=== PATIENT | male | born 1965 | race Caucasian/White ===

== ENCOUNTER 2016-02-15 20:56 | Emergency (ER) | payer BC ==
--- NOTE | 2016-02-15 21:16 | ER Document Report ---
ED Medical Screen (RME) - General Stated Complaint: FLU SYMPTOMS Time seen by provider: 21:16 Mode of Arrival: Ambulatory Information source: Patient Notes: 50 yo male with headache for 1 week, (like in a vice), nausea, dizziness ( vertigo) pneumonia 1 month ago. Vomiting this afternoon, no diarrhea. TRAVEL OUTSIDE OF THE [place] IN LAST 30 DAYS: No
--- NOTE | 2016-02-15 21:59 | ER Document Report ---
ED General - General Chief Complaint: Other Stated Complaint: FLU SYMPTOMS Mode of Arrival: Ambulatory Notes: Patient presents to the emergency department with complaints of headache nausea and dizziness. He reports he's had a headache for approximately one week feels like his head is in a vice. He reports nausea and dizziness today. He also reports he feels hot and cold for the past week. Gives history of pneumonia approximately one month ago. He also reports that he was evaluated at his primary care provider and then [facility]. He reports at the beginning of February he was treated with amoxicillin for UTI for 3 days. He returned because he has some chest congestion and was treated for a cold with amoxicillin for 7 days. He just now finished taking antibiotics. Patient has history of diabetes and kidney stones. Denies chest pain shortness of breath. Denies fever vomiting and diarrhea. No c/o pain with void. TRAVEL OUTSIDE OF THE [place] IN LAST 30 DAYS: No - HPI Onset: Last week Onset/Duration: Persistent Quality of pain: Pressure - in a vice feeling Severity: Moderate Pain Level: 3 Associated symptoms: Nausea Exacerbated by: Denies Relieved by: Denies Similar symptoms previously: No Recently seen / treated by doctor: Yes - Related Data Allergies/Adverse Reactions: butalbital Allergy (Verified 02/15/16 21:18) hydrocodone Allergy (Verified 02/15/16 21:18) hydroxyzine [From Vistaril] Allergy (Verified 02/15/16 21:18) Past Medical History - General Information source: Patient - Social History Smoking Status: Unknown if Ever Smoked Cigarette use (# per day): No Frequency of alcohol use: None Drug Abuse: None 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 Lives with: Family Family History: Reviewed & Not Pertinent Patient has suicidal ideation: No Patient has homicidal ideation: No - Past Medical History Cardiac Medical History: Reports: Hx Hypercholesterolemia Endocrine Medical History: Reports: Hx Diabetes Mellitus Type 2 Renal/ Medical History: Reports: Hx Kidney Stones Past Surgical History: Reports: Hx Kidney (Renal Surgery) Review of Systems - Review of Systems Notes: Review HPI for review of systems., All other systems negative Physical Exam - Vital signs Vitals: Temp Pulse Resp BP Pulse Ox 98.1 F 91 16 124/77 95 02/15/16 21:18 02/15/16 21:18 02/15/16 21:18 02/15/16 21:18 02/15/16 21:18 - Notes Notes: PHYSICAL EXAMINATION: GENERAL: Well-appearing and in no acute distress HEAD: Atraumatic, normocephalic. EYES: Pupils equal round and reactive to light, extraocular movements intact, sclera anicteric, conjunctiva are normal. ENT: TM normal, nares patent, oropharynx clear without exudates. Moist mucous membranes. NECK: Normal range of motion, supple without lymphadenopathy LUNGS: CTAB and equal. No wheezes rales or rhonchi. HEART: Regular rate and rhythm without murmurs ABDOMEN: Soft, no tenderness. No guarding, no rebound BACK: No c/o pain EXTREMITIES: Normal range of motion, no pitting edema. No cyanosis. NEUROLOGICAL: Cranial nerves grossly intact. Normal sensory/motor exams. PSYCH: Normal mood, normal affect. SKIN: Warm, Dry, normal turgor, no rashes or lesions noted, purple discoloration to left flank area that patient reports has been there since he had kidney stone surgery, years ago. Course - Re-evaluation Re-evalutation: 02/15/16 22:08 Patient and instructed on plan of care. They verbalized understanding. 02/15/16 23:25 Patient reports headache has eased off. Still waiting for EKG. 02/16/16 00:53 Patient. Patient was instructed to follow up with his primary care provider within the next few days for a complete recheck. Reports he feels much better. He reports headache is gone. He reports still having pressure. No vomiting noted - Vital Signs Vital signs: Temp Pulse Resp BP Pulse Ox 98.1 F 91 16 124/77 95 02/15/16 21:18 02/15/16 21:18 02/15/16 21:18 02/15/16 21:18 02/15/16 21:18 - Laboratory Result Diagrams: 02/15/16 22:45 02/15/16 22:45 Laboratory results interpreted by me: 02/15/16 02/15/16 02/15/16 22:45 22:45 22:45 RDW 14.1 H Glucose 144 H Calcium 10.4 H Total Bilirubin 1.5 H Ur Leukocyte Esterase TRACE H - EKG Interpretation by Pa EKG shows normal: Sinus rhythm [place]/QRS: RBBB Discharge - Discharge Clinical Impression: Nausea, Dizziness Headache Qualifiers: Headache type: unspecified Headache chronicity pattern: acute headache Intractability: not intractable Qualified Code(s): R51 - Headache Condition: Stable Disposition: HOME, SELF-CARE Instructions: Headache ([facility]), Dizziness ([facility]), Meclizine ([facility]), Nausea or Vomiting, Nonspecific ([facility]), Antinausea Medication ([facility]) Additional Instructions: *You have been evaluated for headache,nausea, dizziness *Take medication as prescribed *Ensure adequate fluid intake *Follow up with a primary care provider within 3 days for recheck *Return to ED for worsening condition, changes, needs Prescriptions: Meclizine HCl [Dramamine Less Drowsy] 25 mg PO DAILY #12 tablet Forms: Elevated Blood Pressure
[2016-02-15] MEDS ORDERED: DIPHENHYDRAMINE HCL 25 MG CAPSULE PO ONE (22:04)
[2016-02-15] MEDS ORDERED: KETOROLAC TROMETHAMINE 60 MG/2 ML SDV IM ONE (22:04)
[2016-02-15] MEDS ORDERED: ONDANSETRON 4 MG TAB.RAPDIS PO ONE (22:04)
[2016-02-15 23:03] LABS: ABSOLUTE EOSINOPHILS # (AUTO) 0.2 10^3/uL (0.0-0.6); ABSOLUTE LYMPHOCYTES (AUTO) 2.3 10^3/uL (0.5-4.7); ABSOLUTE MONOCYTES (AUTO) 0.5 10^3/uL (0.1-1.4); ABSOLUTE NEUT (AUTO) 4.6 10^3/uL (1.7-8.2); BASOPHILS % (AUTO) 0.5 % (0-2); EOSINOPHILS % (AUTO) 2.8 % (0-6); HEMATOCRIT 42.8 % (37.9-51.0); HEMOGLOBIN 14.3 g/dL (13.5-17.0); HGB HCT DIFFERENCE 0.1; LYMPHOCYTES % (AUTO) 30.1 % (13-45); MEAN CORPUSCULAR HEMOGLOBIN 27.1 pg (27.0-33.4); MEAN CORPUSCULAR HGB CONC 33.3 g/dL (32.0-36.0); MEAN CORPUSCULAR VOLUME 81 fl (80-97); MONOCYTES % (AUTO) 7.1 % (3-13); RED BLOOD COUNT 5.26 10^6/uL (4.35-5.55); RED CELL DISTRIBUTION WIDTH 14.1 % (11.5-14.0); SEGMENTED NEUTROPHILS % (AUTO) 59.5 % (42-78); WHITE BLOOD COUNT 7.7 10^3/uL (4.0-10.5)
[2016-02-15 23:18] LABS: APPEARANCE,URINE CLEAR; BILIRUBIN,URINE NEGATIVE (NEGATIVE); GLUCOSE, URINE NEGATIVE (NEGATIVE); KETONES,URINE NEGATIVE (NEGATIVE); LEUKOCYTE ESTERASE,URINE TRACE (NEGATIVE); NITRITE,URINE NEGATIVE (NEGATIVE); PROTEIN,URINE NEGATIVE (NEGATIVE); URINE SPECIFIC GRAVITY 1.023; UROBILINOGEN,URINE NEGATIVE mg/dL (<2.0)
[2016-02-15 23:25] LABS: ALANINE AMINOTRANSFERASE 68 U/L (21-72); ALBUMIN 4.5 g/dL (3.5-5.0); ALKALINE PHOSPHATASE 69 U/L (38-126); ANION GAP 15 (5-19); ASPARTATE AMINO TRANSFERASE 38 U/L (17-59); BILIRUBIN,TOTAL 1.5 mg/dL (0.2-1.3); BLOOD UREA NITROGEN 13 mg/dL (7-20); CALCIUM 10.4 mg/dL (8.4-10.2); CARBON DIOXIDE 28 mmol/L (22-30); CHLORIDE 101 mmol/L (98-107); CREATININE RESULT 0.75 mg/dL (0.52-1.25); GLUCOSE 144 mg/dL (75-110); POTASSIUM 4.5 mmol/L (3.6-5.0); SODIUM 143.6 mmol/L (137-145); TOTAL PROTEIN 7.2 g/dL (6.3-8.2)
[2016-02-16] MEDS ORDERED: MECLIZINE HCL 25 MG TABLET PO ONE (00:12)
[2016-02-16] MEDS ORDERED: ONDANSETRON ODT 4 MG TAB (6 TAB/DSPK) PO PRN (00:51)
[2016-02-16 01:05] VITALS: BP 122/74
--- NOTE | 2016-02-16 08:52 | EKG REPORT ---
SEVERITY:- ABNORMAL ECG - SINUS RHYTHM RIGHT BUNDLE BRANCH BLOCK : Confirmed by: Elva Zelaya 16-Feb-2016 08:51:56
== END 2016-02-16 01:04 | disposition home or self-care (01) ==
LOC: ER 20:56
DX: R51 Headache (principal); R11.0 Nausea; R42 Dizziness and giddiness; E11.9 Type 2 diabetes mellitus without complications; I45.10 Unspecified right bundle-branch block; Z87.01 Personal history of pneumonia (recurrent); Z87.440 Personal history of urinary (tract) infections; Z87.442 Personal history of urinary calculi; Z88.5 Allergy status to narcotic agent; Z88.6 Allergy status to analgesic agent; Z88.8 Allergy status to other drugs, medicaments and biological substances; Z98.890 Other specified postprocedural states
CPT/HCPCS: 93005; 99283; 96372; 36415; 85025; 80053; 81001; 93010; J1885; S0119

== ENCOUNTER 2018-06-10 20:58 | Emergency (ER) | payer BC ==
[2018-06-10] MEDS ORDERED: ONDANSETRON HCL INJ/PF 4 MG/2 ML SDV IV ONE (21:57)
[2018-06-10] MEDS ORDERED: KETOROLAC TROMETHAMINE INJ/PF 30 MG/1 ML SDV IV ONE (21:57)
[2018-06-10] MEDS ORDERED: RINGERS SOLUTION,LACTATED 1,000 ML IV ONE (21:58)
--- NOTE | 2018-06-10 21:58 | ER Document Report ---
ED General - General Chief Complaint: Flank Pain Stated Complaint: FLANK PAIN Time Seen by Provider: 06/10/18 21:44 Primary Care Provider: CARRIE KIRK NP [Primary Care Provider] - Follow up as needed Notes: Patient is a 52-year-old male presents to the emergency department with left flank pain starting at 2040 this evening. Patient is also complaining of 2 episodes of vomiting nonbloody nonbilious. Patient any fever. Is denying any diarrhea or dysuria. Patient states he does have an extensive history of kidney stones on his left side. Has had 2 surgeries for kidney stone removal and also 2 lithotripsies on the left side. Patient states his last kidney stone was in 2001. Patient is denying trauma or injury to his left flank area. Past medical history: Diabetes, hypertension, hyperlipidemia, kidney stones Medications: Metformin, lisinopril Allergies: Hydrocodone, hydralazine, butalbital TRAVEL OUTSIDE OF THE [place] IN LAST 30 DAYS: No - Related Data Allergies/Adverse Reactions: butalbital Allergy (Verified 06/10/18 21:00) hydrocodone Allergy (Verified 06/10/18 21:00) hydroxyzine [From Vistaril] Allergy (Verified 06/10/18 21:00) Past Medical History - General Information source: Patient - Social History Smoking Status: Never Smoker Frequency of alcohol use: Social Drug Abuse: None Family History: Reviewed & Not Pertinent Patient has suicidal ideation: No Patient has homicidal ideation: No - Past Medical History Cardiac Medical History: Reports: Hx Hypercholesterolemia Endocrine Medical History: Reports: Hx Diabetes Mellitus Type 2 Renal/ Medical History: Reports: Hx Kidney Stones. Denies: Hx Peritoneal Dialysis Past Surgical History: Reports: Hx Kidney (Renal Surgery) Review of Systems - Review of Systems Constitutional: denies: Fever EENT: No symptoms reported Cardiovascular: No symptoms reported Respiratory: No symptoms reported Gastrointestinal: See HPI Genitourinary: denies: Burning, Dysuria Male Genitourinary: No symptoms reported Musculoskeletal: See HPI Skin: No symptoms reported Hematologic/Lymphatic: No symptoms reported Neurological/Psychological: No symptoms reported Physical Exam - Vital signs Vitals: Temp Pulse Resp BP Pulse Ox 97.5 F 103 H 22 H 148/104 H 97 06/10/18 21:03 06/10/18 21:03 06/10/18 21:03 06/10/18 21:03 06/10/18 21:03 - Notes Notes: GENERAL: Alert, interacts well. HEAD: Normocephalic, atraumatic. EYES: Pupils equal, round, and reactive to light. Extraocular movements intact. ENT: Oral mucosa moist, tongue midline. NECK: Full range of motion. Supple. Trachea midline. LUNGS: Clear to auscultation bilaterally, no wheezes, rales, or rhonchi. No respiratory distress. HEART: Tachycardic rate and rhythm. No murmur ABDOMEN: Soft, non-tender. Non-distended. Bowel sounds present in all 4 quadrants. No left lower quadrant pain, no left groin pain. EXTREMITIES: Moves all 4 extremities spontaneously. No edema, normal radial and dorsalis pedis pulses bilaterally. No cyanosis. BACK: no cervical, thoracic, lumbar midline tenderness. No saddle anesthesia, normal distal neurovascular exam. Positive left CVA tenderness noted. Well- healed surgical scars noted NEUROLOGICAL: Alert and oriented x3. Normal speech. cranial nerves II through XII grossly intact PSYCH: Normal affect, normal mood. SKIN: Warm, dry, normal turgor. No rashes or lesions noted. Genitalia: Kun Pruett RN, uncircumcised penis with no active discharge noted at the meatus no phimosis noted. Bilateral testicles descended no erythema or tenderness noted bilaterally. Course - Re-evaluation Re-evalutation: 06/11/18 00:44 Abdomen/Pelvis CT 06/10/18 21:56 IMPRESSION: 1. 7 mm calculus at the left ureteropelvic junction, with associated hydronephrosis. 2. No additional renal or ureteral calculi. Patient initially states after Toradol administration his pain had somewhat resolved. Upon reexamination patient states his pain is now moving more to his left groin area. States it has resurfaced. Patient was administered fentanyl. States fentanyl has not helped at all. He continues to be in pain. Patient was administered Dilaudid and fell asleep. Patient easily arousable by verbal stimuli. States his pain is completely resolved at this time. Patient continues to be afebrile, labs are as follows: Laboratory 06/10/18 06/10/18 06/10/18 21:15 22:10 22:10 WBC 8.4 RBC 5.09 Hgb 14.1 Hct 42.2 MCV 83 MCH 27.8 MCHC 33.5 RDW 14.0 Plt Count 289 Seg Neutrophils % 55.9 Lymphocytes % 30.1 Monocytes % 9.9 Eosinophils % 3.8 Basophils % 0.3 Absolute Neutrophils 4.7 Absolute Lymphocytes 2.5 Absolute Monocytes 0.8 Absolute Eosinophils 0.3 Absolute Basophils 0.0 Sodium 140.2 Potassium 4.2 Chloride 104 Carbon Dioxide 24 Anion Gap 12 BUN 14 Creatinine 0.86 Est GFR ( Amer) > 60 Est GFR (Non-Af Amer) > 60 Glucose 155 H Calcium 9.6 Total Bilirubin 1.0 Direct Bilirubin 0.2 Neonat Total Bilirubin Not Reportable Neonat Direct Bilirubin Not Reportable Neonat Indirect Bili Not Reportable AST 20 ALT 41 Alkaline Phosphatase 57 Total Protein 6.9 Albumin 4.1 Urine Color YELLOW Urine Appearance CLOUDY Urine pH 7.0 Ur Specific [place] 1.016 Urine Protein NEGATIVE Urine Glucose (UA) >=500 H Urine Ketones NEGATIVE Urine Blood SMALL H Urine Nitrite NEGATIVE Urine Bilirubin NEGATIVE Urine Urobilinogen NEGATIVE Ur Leukocyte Esterase NEGATIVE Urine WBC (Auto) 1 Urine RBC (Auto) 21 Urine Mucus (Auto) RARE Urine Ascorbic Acid NEGATIVE Discussed close return precautions should patient develop a fever, vomiting, increased pain, any other concerning symptoms he should return. Patient voices understanding and is stable for discharge. - Vital Signs Vital signs: Temp Pulse Resp BP Pulse Ox 97.5 F 103 H 16 133/83 H 96 06/10/18 21:03 06/10/18 21:03 06/10/18 23:01 06/10/18 23:01 06/10/18 23:01 - Laboratory Result Diagrams: 06/10/18 22:10 06/10/18 22:10 Laboratory results interpreted by me: 06/10/18 06/10/18 21:15 22:10 Glucose 155 H Urine Glucose (UA) >=500 H Urine Blood SMALL H Discharge - Discharge Clinical Impression: Kidney stone Condition: Stable Disposition: HOME, SELF-CARE Instructions: Kidney Stone ([facility]) Additional Instructions: Your symptoms should improve over the course of the next one week. If you continue to have pain for greater than one week or your pain is not controlled with the pain medications that you have been sent home with you need to return to the emergency department. Please also return if you develop fever, persistent vomiting, or any other symptoms that are concerning to you. You should take ibuprofen 800 mg every 6 hours and use the oral morphine as prescribed only for pain not controlled by ibuprofen. You are also been sent home with a medication called Flomax to help pass the stone. You've been given Zofran to assist with nausea. Please follow-up with urology in the next 2-3 days. Prescriptions: Morphine Sulfate [Morphine Ir 15 Mg Tablet] 15 mg PO Q4H PRN #15 tablet PRN Reason: Ondansetron [Zofran Odt 4 mg Tablet] 1 - 2 tab PO Q6 #15 tab.rapdis Tamsulosin HCl [Flomax 0.4 mg Cap.sr] 0.4 mg PO DAILY #7 cap.sr.24h Referrals: CARRIE KIRK, ADMINISTRATIVE RESIDENT [Primary Care Provider] - Follow up as needed MAHESH WILLSON MD [NO LOCAL MD] - Follow up as needed GA OLMEDO MD [COAL PICKER] - Follow up as needed
[2018-06-10 22:18] LABS: APPEARANCE,URINE CLOUDY; BILIRUBIN,URINE NEGATIVE (NEGATIVE); COLOR,URINE YELLOW; GLUCOSE, URINE >=500 mg/dL (NEGATIVE); KETONES,URINE NEGATIVE (NEGATIVE); LEUKOCYTE ESTERASE,URINE NEGATIVE (NEGATIVE); NITRITE,URINE NEGATIVE (NEGATIVE); PROTEIN,URINE NEGATIVE (NEGATIVE); URINE SPECIFIC GRAVITY 1.016; UROBILINOGEN,URINE NEGATIVE mg/dL (<2.0)
[2018-06-10 22:28] LABS: ABSOLUTE EOSINOPHILS # (AUTO) 0.3 10^3/uL (0.0-0.6); ABSOLUTE LYMPHOCYTES (AUTO) 2.5 10^3/uL (0.5-4.7); ABSOLUTE MONOCYTES (AUTO) 0.8 10^3/uL (0.1-1.4); ABSOLUTE NEUT (AUTO) 4.7 10^3/uL (1.7-8.2); BASOPHILS % (AUTO) 0.3 % (0-2); EOSINOPHILS % (AUTO) 3.8 % (0-6); HEMATOCRIT 42.2 % (37.9-51.0); HEMOGLOBIN 14.1 g/dL (13.5-17.0); LYMPHOCYTES % (AUTO) 30.1 % (13-45); MEAN CORPUSCULAR HEMOGLOBIN 27.8 pg (27.0-33.4); MEAN CORPUSCULAR HGB CONC 33.5 g/dL (32.0-36.0); MEAN CORPUSCULAR VOLUME 83 fl (80-97); MONOCYTES % (AUTO) 9.9 % (3-13); PLATELET COUNT 289 10^3/uL (150-450); RED BLOOD COUNT 5.09 10^6/uL (4.35-5.55); SEGMENTED NEUTROPHILS % (AUTO) 55.9 % (42-78); TOTAL CELLS COUNTED % (AUTO) 100 %; WHITE BLOOD COUNT 8.4 10^3/uL (4.0-10.5)
[2018-06-10 22:45] LABS: ALANINE AMINOTRANSFERASE 41 U/L (21-72); ALBUMIN 4.1 g/dL (3.5-5.0); ALKALINE PHOSPHATASE 57 U/L (38-126); ANION GAP 12 (5-19); ASPARTATE AMINO TRANSFERASE 20 U/L (17-59); BILIRUBIN,DIRECT 0.2 mg/dL (0.0-0.4); BLOOD UREA NITROGEN 14 mg/dL (7-20); CALCIUM 9.6 mg/dL (8.4-10.2); CARBON DIOXIDE 24 mmol/L (22-30); CHLORIDE 104 mmol/L (98-107); GLUCOSE 155 mg/dL (75-110); POTASSIUM 4.2 mmol/L (3.6-5.0); SODIUM 140.2 mmol/L (137-145); TOTAL PROTEIN 6.9 g/dL (6.3-8.2)
--- NOTE | 2018-06-10 23:04 | RADIOLOGY REPORT (SQ) ---
EXAM DESCRIPTION: [facility]: CT ABDOMEN PELVIS WITHOUT IV CONTRAST CLINICAL HISTORY: 52 years Male; left flank/possible kidney stone TECHNIQUE: CT of the abdomen and pelvis without contrast. All CT scans at this facility use dose modulation, iterative reconstruction, and/or weight based dosing when appropriate to reduce radiation dose to as low as reasonably achievable. COMPARISON: None. FINDINGS: Abdomen: Liver:No focal lesions. No intrahepatic ductal distention. Gallbladder:Negative Pancreas:Within normal limits Spleen:Within normal limits Right kidney:No hydronephrosis. No renal or ureteral calculi. Left kidney: Several millimeter calculus at the ureteropelvic junction with left hydronephrosis. There is mild calyceal blunting. No perinephric fluid collection. No additional calculi. Adrenal glands:Within normal limits Vascular structures:Within normal limits (although limited evaluation on noncontrast exam). Pelvis: Small bowel:No significant distention. Appendix:Within normal limits Colon:No distention or acute pericolonic edema. No free intraperitoneal fluid or air. There is a small fat-containing right inguinal hernia, without edema or bowel involvement. Bladder is nondistended. Degenerative disc changes are noted at L4-L5. No acute bone findings. Note that evaluation of the bowel and solid organs is somewhat limited due to lack of intravenous and oral contrast. IMPRESSION: 1. 7 mm calculus at the left ureteropelvic junction, with associated hydronephrosis. 2. No additional renal or ureteral calculi.
[2018-06-10] MEDS ORDERED: FENTANYL CITRATE INJ/PF 100 MCG/2 ML AMPUL IV ONE (23:19)
[2018-06-11] MEDS ORDERED: HYDROMORPHONE HCL INJ/PF 2 MG/ML AMPULE IV ONE (00:11)
[2018-06-11 01:20] VITALS: BP 112/69
== END 2018-06-11 01:36 | disposition home or self-care (01) ==
LOC: ER 20:58
DX: N13.2 Hydronephrosis with renal and ureteral calculous obstruction (principal); R11.10 Vomiting, unspecified; R30.0 Dysuria; R10.9 Unspecified abdominal pain; E11.9 Type 2 diabetes mellitus without complications; I10 Essential (primary) hypertension; Z79.84 Long term (current) use of oral hypoglycemic drugs; Z79.899 Other long term (current) drug therapy; Z88.5 Allergy status to narcotic agent; Z88.8 Allergy status to other drugs, medicaments and biological substances; Z88.6 Allergy status to analgesic agent; R00.0 Tachycardia, unspecified
CPT/HCPCS: 99284; 96361; 96374; 96375; 36415; 87086; 85025; 80053; 81001; 74176; J3010; J1885; J1170; J2405; J7120

== ENCOUNTER 2019-09-24 08:39 | Emergency (ER) | payer BC ==
[2019-09-24 09:11] VITALS: BP 133/86
--- NOTE | 2019-09-24 11:11 | ER Document Report ---
Entered by YUSRA HUGO SCRIBE 09/24/19 1023 Acting as scribe for:CHRISTOS DELGADO MD ED Neck/Back Problem - General Chief Complaint: Low Back Pain Stated Complaint: BACK PAIN,LEFT LEG PAIN Time Seen by Provider: 09/24/19 10:04 Primary Care Provider: CARRIE KIRK, HOTEL SERVER [Primary Care Provider] - Follow up as needed Mode of Arrival: Ambulatory Information source: Patient Notes: This 53 year old male patient presents to the emergency department today for "sciatic nerve pain" for the last three weeks. Patient reports that he has seen his PCP and a second doctor for this pain and he was given hydrocodone which helped somewhat, tramadol which didn't really help, and "every other day" prednisone which also didn't help. He reports the pain radiates from his left butt check down the back of his thigh and down the left lateral lower leg down to the lateral ankle. He denies any weakness, numbness, bowel/bladder incontinence, or any neurological deficits. TRAVEL OUTSIDE OF THE [place] IN LAST 30 DAYS: No - Related Data Allergies/Adverse Reactions: butalbital Allergy (Verified 06/10/18 21:00) hydrocodone Allergy (Verified 06/10/18 21:00) hydroxyzine [From Vistaril] Allergy (Verified 06/10/18 21:00) Past Medical History - General Information source: Patient - Social History Smoking Status: Never Smoker Cigarette use (# per day): No Frequency of alcohol use: None Drug Abuse: None Lives with: Family Family History: Reviewed & Not Pertinent Patient has homicidal ideation: No - Past Medical History Cardiac Medical History: Reports: Hx Hypercholesterolemia Endocrine Medical History: Reports: Hx Diabetes Mellitus Type 2 - Metformin, Trulicity, low-dose lisinopril for kidney function Renal/ Medical History: Reports: Hx Benign Prostatic Hyperplasia, Hx Kidney Stones Past Surgical History: Reports: Hx Kidney (Renal Surgery) - posterior open approach for kidney stone removal Review of Systems - Review of Systems Constitutional: No symptoms reported EENT: No symptoms reported Cardiovascular: No symptoms reported Respiratory: No symptoms reported Gastrointestinal: No symptoms reported Genitourinary: No symptoms reported Male Genitourinary: No symptoms reported Musculoskeletal: See HPI, Back pain - radiating pain down the back of his left leg down to lateral ankle Skin: No symptoms reported Hematologic/Lymphatic: No symptoms reported Neurological/Psychological: No symptoms reported -: Yes All other systems reviewed and negative Physical Exam - Vital signs Vitals: Temp Pulse Resp BP Pulse Ox 97.7 F 110 H 16 133/86 H 95 09/24/19 08:49 09/24/19 08:49 09/24/19 08:49 09/24/19 08:49 09/24/19 08:49 - Notes Notes: Physical Exam: General: Alert, appears well. HEENT: Normocephalic. Atraumatic. PERRL. Extraocular movements intact. Oropharynx clear. Neck: Supple. Non-tender. Respiratory: No respiratory distress. Clear and equal breath sounds bilaterally. Cardiovascular: Regular rate and rhythm. Abdominal: Obese. Non-tender. No distension. Normal Bowel Sounds. Back: Positive straight leg raise on the left causing pain down the left leg in the L5 distribution. No back tenderness to palpation. No gross abnormalities. Extremities: Moves all four extremities. Upper extremities: Normal inspection. Normal ROM. Lower extremities: Normal inspection. No edema. Normal ROM. Neurological: Normal cognition. AAOx4. Normal speech. Psychological: Normal affect. Normal Mood. Skin: Warm. Dry. Normal color. Course - Vital Signs Vital signs: Temp Pulse Resp BP Pulse Ox 97.7 F 110 H 16 133/86 H 95 09/24/19 08:49 09/24/19 08:49 09/24/19 08:49 09/24/19 08:49 09/24/19 08:49 Discharge - Discharge Clinical Impression: Sciatica of left side, Lumbar disc disease with radiculopathy Condition: Stable Disposition: HOME, SELF-CARE Additional Instructions: Sciatica Your symptoms suggest "sciatica." The pain of sciatica typically radiates down the leg. Numbness in the foot or calf may also occur. Sciatica is caused by irritation of the sciatic nerve or its branches. The irritation can be due to a herniated disk in the spine, swelling and inflammation in the muscles surrounding the sciatic nerve, or direct injury of the nerve itself. Most cases of sciatica will resolve with medical treatment. Bed rest is usually recommended initially. Surgery is only necessary when the condition will not improve with rest and antiinflammatory medication. Muscle relaxers are often given if muscle soreness is present. A CAT scan of the back may be performed if a herniated disk is suspected. Re-examination is necessary if you develop increasing numbness, localized weakness in the foot or ankle, or if the pain does not respond to rest. Take the medication as prescribed. The prednisone will make your blood sugars go up, so drink plenty of fluids and try to maintain a low calorie diet. Take the gabapentin as prescribed, initially you will take 1 tablet every 8 hours, after 3 to 4 days if you do not have dizziness or other adverse symptoms, then increase to 2 tablets every 8 hours. Traction to your low back such as an inversion table, or seeing a chiropractor is usually helpful. Call your primary care provider to schedule a follow-up appointment to discuss referral to a spine surgeon or to pain management for epidural injections. RETURN TO THE EMERGENCY ROOM IF ANY NEW OR WORSENING SYMPTOMS. Prescriptions: Prednisone [Deltasone 20 mg Tablet] 20 mg PO ASDIR PRN #12 tablet PRN Reason: Gabapentin [Neurontin 400 mg Capsule] 400 mg PO ASDIR PRN #60 capsule PRN Reason: Referrals: CARRIE KIRK, HOTEL SERVER [Primary Care Provider] - Follow up in 3-5 days I personally performed the services described in the documentation, reviewed and edited the documentation which was dictated to the scribe in my presence, and it accurately records my words and actions.
--- NOTE | 2019-09-24 12:15 | RADIOLOGY REPORT (SQ) ---
EXAM DESCRIPTION: MRI LUMBAR SPINE WITHOUT IMAGES COMPLETED DATE/TIME: 09/24/2019 12:03 pm REASON FOR STUDY: left L5 sciatica COMPARISON: None. TECHNIQUE: Sagittal and Axial imaging includes T1, T2, STIR and gradient echo sequences. Coronal T2/ HASTE imaging. LIMITATIONS: None. FINDINGS: Patient became claustrophobic and was unable to complete the exam. Only the T1 and T2 sag ittal exams were done. On these images there appears to be an asymmetrical broad-based disc bulge at L5-S1 with narrowing of the left neural foramen. At L4-5 there appears to be an asymmetrical disc b ulge with narrowing of the right neural foramen. IMPRESSION: Foraminal narrowing on each side as described above in this extremely limited study. TECHNICAL DOCUMENTATION: JOB ID: [id number] 2010 [employer]- All Rights Reserved Reading location - IP/workstation name: [email or web address]
== END 2019-09-24 14:13 | disposition home or self-care (01) ==
LOC: ER 08:39
DX: M51.16 Intervertebral disc disorders with radiculopathy, lumbar region (principal); E11.9 Type 2 diabetes mellitus without complications; Z88.8 Allergy status to other drugs, medicaments and biological substances; Z88.6 Allergy status to analgesic agent; Z88.5 Allergy status to narcotic agent
CPT/HCPCS: 72148; 99284